=== PATIENT | male | born 1985 | race Caucasian/White ===

== ENCOUNTER 2017-08-04 00:43 | Emergency (ER) | payer BC, OTHER ==
[~2017-08-04] VITALS: Ht 177.8 cm; Wt 91.2 kg
[2017-08-04 03:15] VITALS: BP 130/97
== END 2017-08-04 03:16 | disposition home or self-care (01) ==
LOC: EME 00:43
DX: F10.20 Alcohol dependence, uncomplicated (principal); R06.02 Shortness of breath; F17.200 Nicotine dependence, unspecified, uncomplicated
CPT/HCPCS: 71046; 99281; 99283

== ENCOUNTER 2017-09-07 13:10 | Emergency (ER) | payer BC ==
[~2017-09-07] VITALS: Ht 177.8 cm; Wt 95.5 kg
[2017-09-07 13:59] LABS: HEMATOCRIT 45.6 % (38.0-50.0); HEMOGLOBIN 16.5 G/DL (12.5-16.6); MCH 34.8 PG (29.0-34.0); MCHC 36.2 G/DL (30.0-36.0); MCV 96.2 FL (86-99); PLATELET COUNT 333 K/uL (156-360); RBC DIS.WIDTH-SD 39.6 % (39-53); RED BLOOD COUNT 4.74 M/uL (4.00-5.50); WHITE BLOOD COUNT 11.2 K/uL (4.1-10.2)
[2017-09-07 14:07] LABS: D-DIMER ELISA < 150.00 ng/mLDDU (<230)
[2017-09-07 14:29] LABS: CHLORIDE 102 MEQ/L (99-109); CREATININE 0.8 MG/DL (0.6-1.3); GFR ESTIMATE (CALCULATED) > 59 mL/min/ (58.99-99999); GLUCOSE 99 mg/dL (70-99); POTASSIUM 3.8 MEQ/L (3.7-5.4); SODIUM 137 MEQ/L (136-147); UREA NITROGEN (BUN) 9 mg/dL (9-23)
[2017-09-07 14:41] LABS: TROP-I INTERPRETATION NEGATIVE; TROPONIN-I < 0.01 ng/mL (0.0-0.30)
[2017-09-07] MEDS ORDERED: ATIVAN1 MG PO (14:51)
[2017-09-07 15:12] VITALS: BP 135/93
[2017-09-07] MEDS ORDERED: LISINOPRIL20 MG PO (15:12)
== END 2017-09-07 15:23 | disposition home or self-care (01) ==
LOC: EME 13:10
PROVIDERS: Emergency Medicine Emergency Medical Services
DX: R06.02 Shortness of breath (principal); F10.239 Alcohol dependence with withdrawal, unspecified; Y90.9 Presence of alcohol in blood, level not specified; F41.9 Anxiety disorder, unspecified; R53.1 Weakness; I10 Essential (primary) hypertension; F17.200 Nicotine dependence, unspecified, uncomplicated
CPT/HCPCS: 71045; 80048; 84484; 85027; 85379; 93005; 99281; 99285; J7030